=== PATIENT | male | born 1980 | race Caucasian/White ===

== ENCOUNTER 2021-09-29 17:08 | Emergency (ER) | payer OTHER ==
[~2021-09-29] VITALS: Ht 177.8 cm; Wt 79.4 kg
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
--- NOTE | 2021-09-29 17:32 | NUR ---
IV ESTABLISHED L AC 20G, LABS DRAWN AND COLLECTED.
[2021-09-29] MEDS ORDERED: IV NS 0.9% 250 ML IV ONE (17:48)
[2021-09-29] MEDS ORDERED: IOHEXOL-300 100 ML VIAL IV ONE (17:48)
[2021-09-29 18:01] LABS: BASOPHILS # (AUTO) 0.1 K/uL (0.0-0.2); BASOPHILS % (AUTO) 0.5 % (0.0-2.0); EOSINOPHILS % (AUTO) 0.6 % (0.0-6.0); HEMATOCRIT 41 % (39-51); HEMOGLOBIN 14.1 g/dL (13.5-17.5); LYMPHOCYTES # (AUTO) 1.7 K/uL (0.8-4.8); LYMPHOCYTES % (AUTO) 15.5 % (20.0-44.0); MEAN CORPUSCULAR HGB CONC 34 g/dl (31.0-36.0); MEAN CORPUSCULAR VOLUME 89 fL (80-96); MONOCYTES # (AUTO) 0.9 K/uL (0.1-1.30); MONOCYTES % (AUTO) 8.1 % (2.0-12.0); NEUTROPHILS # (AUTO) 8.3 K/uL (1.8-8.9); NEUTROPHILS % (AUTO) 75.3 % (43.0-81.0); PLATELET COUNT (AUTO) 241 K/uL (150-450); RED BLOOD CELL COUNT(AUTO) 4.66 MIL/uL (4.5-6.0)
[2021-09-29 18:09] LABS: CALCIUM, SERUM 9.1 mg/dL (8.5-10.1); CREATININE 1.3 mg/dL (0.6-1.3); POTASSIUM 3.8 mmol/L (3.5-5.1)
--- NOTE | 2021-09-29 18:17 | NUR ---
PT TAKEN TO CT
--- NOTE | 2021-09-29 18:34 | NUR ---
PT RETURNED FROM CT
[2021-09-29] MEDS ORDERED: HYDROCODONE/APAP 10/325MG TABLET PO ONE (19:30)
[2021-09-29] MEDS ORDERED: HYDROCODONE/APAP 10/325MG TABLET ONE (19:37)
[2021-09-29] MEDS ORDERED: TDAP [DIPH/PERTUSSIS/TET] 0.5 ML VIAL IM ONE ×2 (19:58→20:00)
[2021-09-29] MEDS ORDERED: ACET-907 PO (20:00)
--- NOTE | 2021-09-29 20:20 | NUR ---
Patient discharged to home in stable condition. Written and verbal after care instructions given. Patient verbalizes understanding of instruction. PT ambulatory with a steady gait. Pt dc with stitches and dressing to R knee.
[2021-09-29 20:21] VITALS: BP 105/70
== END 2021-09-29 20:22 | disposition home or self-care (01) ==
LOC: ER 17:13
DX: S81.011A Laceration without foreign body, right knee, initial encounter (principal); S30.1XXA Contusion of abdominal wall, initial encounter; V29.49XA Motorcycle driver injured in collision with other motor vehicles in traffic accident, initial encounter; Y93.89 Activity, other specified; Y92.89 Other specified places as the place of occurrence of the external cause; Y99.8 Other external cause status
CPT/HCPCS: 12001; 36415; 74177; 80048; 85025; 90471; 90715; 99285; J7050; Q9967